=== PATIENT | female | born 1935 | race Caucasian/White ===

== ENCOUNTER → 2018-02-03 | Outpatient (CLI) | payer MEDICARE ==
[~2018-02-03] MED LIST: ALLO-119 PO; AMLO-104 PO; ASCO-182 PO; ASCO500T PO; ASPI-1441 PO; ASPI-1471 PO; ATEN-65 PO; CALC-734 PO; GLI5 PO; LEVO50 PO; LEVO50TA86 PO; LISI2.5T60 PO; METF-410 PO; OSC600 PO; PLAN450T3 PO; SIMV-49 PO; SIMV10TA98 PO; SIMV5TAB56 PO
== END ==
LOC: LAB 07:54
PROVIDERS: ATTEND Nurse Practitioner Family
DX: E11.22 Type 2 diabetes mellitus with diabetic chronic kidney disease (principal); E03.9 Hypothyroidism, unspecified; I10 Essential (primary) hypertension; E78.00 Pure hypercholesterolemia, unspecified
CPT/HCPCS: 36415; 82040; 82247; 82310; 82374; 82435; 82565; 82947; 83036; 84075; 84132; 84155; 84295; 84443; 84450; 84460; 84520

== ENCOUNTER → 2018-02-18 | Outpatient (CLI) | payer MEDICARE ==
[2018-02-18 09:39] LABS: PLATELET COUNT, AUTOMATED 145 K/uL (150-450)
== END ==
LOC: LAB 08:56
PROVIDERS: ATTEND Internal Medicine Nephrology
DX: I12.9 Hypertensive chronic kidney disease with stage 1 through stage 4 chronic kidney disease, or unspecified chronic kidney disease (principal); N18.3 Chronic kidney disease, stage 3 (moderate); M10.9 Gout, unspecified; R82.79 Other abnormal findings on microbiological examination of urine
CPT/HCPCS: 36415; 81001; 82043; 82310; 82374; 82435; 82565; 82947; 84132; 84295; 84520; 84550; 85025; 87088

== ENCOUNTER → 2018-04-17 | Outpatient (CLI) | payer MEDICARE ==
[~2018-04-17] MED LIST changes: -METF-410 PO; +METF-411 PO
--- NOTE | 2018-04-21 08:32 | RADIOLOGY IMAGING REPORT ---
FACILITY: [facility] PATIENT NAME: CHACORTA SOLIS : [id number] MR: [id number] V: [id number] EXAM DATE: ORDERING PHYSICIAN: DEO GARY TECHNOLOGIST: Kaylin Velez PROCEDURE:BILATERAL DIGITAL SCREENING MAMMOGRAM WITH CAD ASSISTED INTERPRETATION & 3D TOMOSYNTHESIS COMPARISON:Prior mammograms 12/24/16, 02/01/16, 01/20/15, 09/16/13. INDICATIONS:screening FINDINGS: A small amount of fibroglandular tissue is seen throughout the breasts. The parenchymal pattern has remained stable allowing for difference in mammographic technique & patient positioning. There is no evidence of malignant appearing mass, malignant appearing calcifications or other secondary sign of malignancy in either breast. DIAGNOSTIC CATEGORY 2--BENIGN FINDING. RECOMMENDATIONS: ROUTINE MAMMOGRAM AND CLINICAL EVALUATION. IMPRESSION: BIRADS 2: Benign finding. No significant abnormality is seen. Dictated by: Shayy Machado M.D. on 04/20/2018 at 15:06 Transcribed by: SUBHASH on 04/20/2018 at 15:30 Approved by: Shayy Machado M.D. on 04/21/2018 at 8:31 [facility]
== END ==
LOC: MAMO 01:17
PROVIDERS: ATTEND Nurse Practitioner Family
DX: Z12.31 Encounter for screening mammogram for malignant neoplasm of breast (principal)
CPT/HCPCS: 77063; 77067

== ENCOUNTER → 2018-08-14 | Outpatient (CLI) | payer MEDICARE ==
[~2018-08-14] MED LIST changes: -METF-411 PO; +METF-450 PO; +PRAZ1CAP26 PO
[2018-08-14 08:24] LABS: PLATELET COUNT, AUTOMATED 146 K/uL (150-450)
== END ==
LOC: LAB 08:11
PROVIDERS: ATTEND Nurse Practitioner Family
DX: E78.5 Hyperlipidemia, unspecified (principal); E03.9 Hypothyroidism, unspecified; E11.9 Type 2 diabetes mellitus without complications; N18.9 Chronic kidney disease, unspecified; M10.9 Gout, unspecified; I10 Essential (primary) hypertension
CPT/HCPCS: 36415; 82040; 82247; 82310; 82374; 82435; 82465; 82565; 82947; 83036; 83718; 84075; 84132; 84155; 84295; 84443; 84450; 84460; 84478; 84520; 84550; 85025

== ENCOUNTER → 2019-02-11 | Outpatient (CLI) | payer MEDICARE | LOC: LAB 07:37 | PROVIDERS: ATTEND Nurse Practitioner Family | DX: E11.9 Type 2 diabetes mellitus without complications (principal); I12.9 Hypertensive chronic kidney disease with stage 1 through stage 4 chronic kidney disease, or unspecified chronic kidney disease; N18.9 Chronic kidney disease, unspecified; E03.9 Hypothyroidism, unspecified | CPT/HCPCS: 36415; 82040; 82247; 82310; 82374; 82435; 82565; 82947; 83036; 84075; 84132; 84155; 84295; 84443; 84450; 84460; 84520 ==

== ENCOUNTER → 2019-05-24 | Outpatient (CLI) | payer MEDICARE ==
--- NOTE | 2019-05-24 15:11 | RADIOLOGY IMAGING REPORT ---
FACILITY: [facility] [place] PATIENT NAME: CHACORTA SOLIS : [id number] MR: [id number] V: [id number] EXAM DATE: [id number] ORDERING PHYSICIAN: DEO GARY TECHNOLOGIST: Kaylin Velez PROCEDURE: BILATERAL DIGITAL SCREENING MAMMOGRAM WITH CAD ASSISTED INTERPRETATION & 3D TOMOSYNTHESIS. REASON FOR STUDY: Screening. BREAST PROCEDURES/TREATMENTS: Benign Left breast biopsy times 2. COMPARISON: Mammograms dating back to 2012. VIEWS OBTAINED: 2D & 3D full field CC & MLO projections. BREAST DENSITY: The breasts are almost entirely fatty replaced. MAMMOGRAM FINDINGS: There are 2 small circumscribed masses in the medial Left breast unchanged from numerous prior exams. One of the masses has some course benign macrocalcifications. No new or enlarging masses in either breast. The Right breast is stable. No concerning microcalcifications in either breast. IMPRESSION: BIRADS 2: Benign finding. DIAGNOSTIC CATEGORY 2--BENIGN FINDING. RECOMMENDATIONS: ROUTINE MAMMOGRAM AND CLINICAL EVALUATION. Dictated by: Saroj Peralta M.D. on 05/24/2019 at 14:28 Transcribed by: SUBHASH on 05/24/2019 at 14:46 Approved by: Saroj Peralta M.D. on 05/24/2019 at 15:07 [facility]
== END ==
LOC: MAMO 01:04
PROVIDERS: ATTEND Nurse Practitioner Family
DX: Z12.31 Encounter for screening mammogram for malignant neoplasm of breast (principal)
CPT/HCPCS: 77063; 77067